=== PATIENT | female | born 1950 | race Caucasian/White ===

== ENCOUNTER → 2017-02-17 | Outpatient (CLI) | payer BC ==
--- NOTE | 2017-02-18 12:36 | ECHOCARDIOGRAPHY REPORT ---
PROCEDURE PHYSICIAN: GNEO HERNANDEZ DATE OF PROCEDURE: 02/17/2017 TWO DIMENSIONAL ECHOCARDIOGRAM REPORT PRIMARY PHYSICIAN: OTHER PHYSICIAN: REFERRING PHYSICIAN: Dr. Delatorre ORDERING PHYSICIAN: INDICATION FOR THE PROCEDURE: MEASUREMENTS DERIVED VALUES LV DIAMETER (LAX) NORMALS NORMALS Diastolic 4.1 (3.6-5.2) Eject. Fract. 55% (60%+/-6%) Systolic (2.3-3.9) Diastolic Vol. % Shortening (0.22-0.42) Systolic Vol. Aortic Root IVS THICKNESS Diastolic 0.8 (0.6-1.1) LVPW THICKNESS Diastolic 0.8 (0.6-1.1) LA DIAMETER Systolic 4. (2.1-3.7) FINDINGS: 1. Technical quality is good. 2. The left ventricle is normal in size with subtle hypokinesia at the septum. Systolic function is preserved. Estimated ejection fraction 55%. 3. The left atrium is normal in size. No clot or thrombus were seen within the left atrium. 4. The right atrium and right ventricle are normal in size. No clot or thrombus were seen within the right side. 5. Mitral valve is normal in morphology with mild mitral regurgitation noted by color Doppler flow. No mitral valve prolapse. No mitral valve stenosis. 6. Aortic valve is trileaflet with normal opening and closing pattern. No significant aortic stenosis or regurgitation was seen. 7. Tricuspid valve is normal in morphology with mild tricuspid regurgitation noted by color Doppler flow. Doppler across tricuspid valve estimated pulmonary artery pressure of 28+ right atrial pressure. 8. Pulmonic valve is functioning normally. 9. No pericardial effusion. CONCLUSION: 1. Normal left ventricular size. Subtle hypokinesia was noted at the septum. Systolic function is preserved. Estimated ejection fraction 55%. 2. Mild mitral and tricuspid regurgitation. 3. Estimated pulmonary artery pressure of 30 mmHg. 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
== END ==
LOC: CARD 13:58
PROVIDERS: ATTEND Physician Assistant
DX: R09.89 Other specified symptoms and signs involving the circulatory and respiratory systems (principal); R07.89 Other chest pain; E78.4 Other hyperlipidemia; I10 Essential (primary) hypertension
CPT/HCPCS: 93306

== ENCOUNTER → 2017-02-24 | Outpatient (CLI) | payer BC ==
[~2017-02-24] VITALS: Ht 160 cm; Wt 63.5 kg
[~2017-02-24] MED LIST: CATHETER FLUSH 10 ML SYR IV PRN
[2017-02-24 09:28] VITALS: BP 145/83
[2017-02-24 09:36] VITALS: BP 128/79
[2017-02-24 09:42] VITALS: BP 141/80
--- NOTE | 2017-02-24 16:07 | STRESS TEST ---
DATE OF SERVICE: DATE OF STUDY: 02/24/2017 REFERRING PHYSICIAN: Dr. Chaitanya Delatorre Baseline heart rate 100, baseline blood pressure 128/79, baseline EKG is sinus rhythm with no ischemic changes. In summary, the patient was injected with 10.33 millicuries of technetium 99 Myoview. The patient started with a baseline heart rate to be borderline tachycardic. She was able to exercise for a total of 9 minutes on standard Chintan protocol achieving maximum heart rate of 135 which is 87% of maximum expected heart rate. With peak exercise level, EKG was showing minimal undiagnostic changes. During recovery, heart rate and blood pressure returned to baseline. Peak blood pressure was 149/82. The resting and stress images were reviewed and compared and the short axis, horizontal long axis and vertical long axis views revealed that images showed mild decreased uptake at the basal to mid anterior septum and inferior septum with subtle reversibility. SSS is 8, SDS 6, TID value 0.94. On the gaited images, the left ventricle appeared to be normal size with normal contractility. Calculated ejection fraction 71%. CONCLUSION: 1. Excellent exercise tolerance, a total of 9 minutes on standard Chintan protocol, total of 10.1 mets achieving 87% of maximum expected heart rate. 2. Nondiagnostic EKG changes with exercise, returned to baseline during recovery. 3. Extracardiac attenuation affecting the quality of the images. There is mild decreased uptake at the base of the anterior septum and inferior septum with subtle reversibility. Does not correlate with significant ischemia. 4. Normal left ventricular size with normal contractility. Calculated ejection fraction is 71%. Job ID: [id number] DocumentID: [id number] Dictated Date: 02/24/2017 14:46:15 911 Emergency Dispatcher Date: 02/24/2017 15:45:08 Dictated By: GENO HERNANDEZ MD
== END ==
LOC: CARD 08:36
PROVIDERS: ATTEND Physician Assistant
DX: R09.89 Other specified symptoms and signs involving the circulatory and respiratory systems (principal); R07.89 Other chest pain; E78.4 Other hyperlipidemia; I10 Essential (primary) hypertension
CPT/HCPCS: 78452; 93017

== ENCOUNTER → 2018-03-09 | Outpatient (CLI) | payer BC ==
[2018-03-09 09:25] VITALS: BP 124/73
[2018-03-09 09:37] VITALS: BP 142/80
--- NOTE | 2018-03-09 22:23 | STRESS TEST ---
DATE OF SERVICE: 03/09/2018 EXERCISE MYOVIEW STRESS TEST REPORT REFERRING PHYSICIAN: Dr. Delatorre. Baseline heart rate is 63. Baseline blood pressure 124/73. Baseline EKG is sinus rhythm with no ischemic changes. In summary, the patient was injected with 10.67 mCi of technetium-99 Myoview and the resting images were obtained. Then, the patient started exercising with a baseline heart rate, blood pressure and EKG mentioned above. The patient was able to exercise for a total of 9 minutes and 45 seconds on standard Chintan protocol. With peak exercise level, EKG was showing nondiagnostic changes. During recovery, heart rate and blood pressure returned to baseline. EKG returned to baseline. The resting and stress images were reviewed and compared in the short axis, horizontal long axis, and vertical long axis views. Review of the images showed no significant ischemia or infarction on SPECT images. SSS is 0. TID value 1.02. On the gated images, the left ventricle appeared to be in normal size with normal contractility. Calculated ejection fraction 70%. CONCLUSION: 1. Good exercise tolerance, a total of 9 minutes 45 seconds on standard Chintan protocol, total of 11.3 METS achieving 92% of maximum expected heart rate. 2. Appropriate heart rate and blood pressure response to exercise returned to baseline during recovery. 3. Minimal nondiagnostic EKG changes with exercise returned to baseline during recovery. 4. No significant ischemia or infarction on SPECT images. 5. Normal left ventricular size with normal contractility. Calculated ejection fraction 70%. 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
== END ==
LOC: CARD 08:02
PROVIDERS: ATTEND Physician Assistant
DX: R09.89 Other specified symptoms and signs involving the circulatory and respiratory systems (principal); R07.89 Other chest pain; E78.5 Hyperlipidemia, unspecified; I10 Essential (primary) hypertension
CPT/HCPCS: 78452; 93017

== ENCOUNTER → 2021-09-24 | Outpatient (CLI) | payer MEDICARE, OTHER ==
[~2021-09-24] VITALS: Ht 160 cm; Wt 76.0 kg
[2021-09-24 13:54] VITALS: BP 136/88
--- NOTE | 2021-09-24 15:41 | Cardiology Stress Test Report ---
Stress Test Report Date of Procedure/Referring: Date of Procedure: Sep 24, 2021 PCP Geno White MD Admitting Physician Chaitanya Delatorre MD Indications: HTN Baseline Heart Rate: 71 Baseline Blood Pressure: Blood Pressure Systolic: 136 Blood Pressure Diastolic: 88 Vital Signs Date Time Temp Pulse Resp B/P (MAP) Pulse Ox O2 Delivery O2 Flow Rate FiO2 09/24/21 13:54 71 136/88 (104) Baseline Vital Signs Vital Signs Date Time Temp Pulse Resp B/P (MAP) Pulse Ox O2 Delivery O2 Flow Rate FiO2 09/24/21 13:54 71 136/88 (104) Baseline EKG: Baseline EKG: NSR Summary: After explaining the procedure and details to the patient, she signed the consent and was brought to the stress nuclear laboratory. Patient exercised on standard Chintan protocol, EKG, heart rate and blood pressure were monitored continuously, resting and stress doses of radio tracer were injected, imaging was acquired and reviewed in the short axis, horizontal long axis and vertical long axis views Patient was able to exercise for a total of 5 minutes on Chintan protocol, METs 7 Maximum heart rate 135 Maximum blood pressure 151/96 Stress EKG, Minimal nondiagnostic changes Recovery EKG, Return to baseline TID: 0.82 SSS: 3 SDS: 3 EF: 86 Conclusion: 1. Good exercise tolerance for a total of 5 minutes on standard Chintan protocol, 7 minutes achieving 89% of maximum expected heart rate 2. Appropriate heart rate and blood pressure response to exercise return to baseline during recovery 3. Minimal nondiagnostic EKG changes with exercise return to baseline during recovery 4. No significant ischemia or infarction on SPECT images 5. Normal left ventricular size, EF 86% GENO WHITE MD Sep 24, 2021 15:41
== END ==
LOC: CARD 12:00
PROVIDERS: ATTEND Internal Medicine Cardiovascular Disease
DX: I34.0 Nonrheumatic mitral (valve) insufficiency (principal); I25.10 Atherosclerotic heart disease of native coronary artery without angina pectoris; I11.9 Hypertensive heart disease without heart failure
CPT/HCPCS: 78452; 93017; 93306; A9502

== ENCOUNTER 2023-01-06 05:37 | Outpatient (CLI) | payer MEDICARE ==
[~2023-01-06] VITALS: Ht 162.6 cm; Wt 59.9 kg
[2023-01-06] MEDS ORDERED: ATOR10TA66 PO (13:26)
[2023-01-06] MEDS ORDERED: HYDR12.56 PO (13:26)
[2023-01-06] MEDS ORDERED: VALA10004 PO (13:26)
[2023-01-06] MEDS ORDERED: RALO60TA PO (13:26)
== END 2023-01-06 13:31 | disposition home or self-care (01) ==
LOC: PREOP 05:37
PROVIDERS: ATTEND Surgery
DX: Z01.818 Encounter for other preprocedural examination (principal)

== ENCOUNTER 2023-01-15 10:58 | Day surgery (SDC) | payer MEDICARE ==
[~2023-01-15] VITALS: Ht 160 cm; Wt 59.9 kg
[~2023-01-15 10:58] MED LIST changes: +ATOR10TA66 PO; -CATHETER FLUSH 10 ML SYR IV PRN; +HYDR12.56 PO; +RALO60TA PO; +VALA10004 PO
[2023-01-15] MEDS ORDERED: LACTATED RINGERS 1,000 ML IV STA (11:05)
[2023-01-15] MEDS ORDERED: LIDOCAINE JELLY 2% 6 ML SYRINGE MM PRN (11:15)
[2023-01-15] MEDS ORDERED: PROPOFOL INJECTION 50 ML IV ONE (11:16)
[2023-01-15 11:25] VITALS: BP 120/80
--- NOTE | 2023-01-15 11:28 | Progress Note-Pre Operative ---
Pre-Operative Progress Note Date of Available H&P: Jan 15, 2023 Date H&P Reviewed: Jan 15, 2023 Time H&P Reviewed: 11:15 History & Physical: No changes noted Pre-Operative Diagnosis: screening o ANA GARNETT MD Jan 15, 2023 11:28
--- NOTE | 2023-01-15 11:29 | Discharge Inst-Surgical ---
D/C Lap Instructions-MARIOLA Follow Up Activity as tolerated High Fiber Diet 25g or more per day Avoid Alcohol, Caffeine, Spicy [place] and Acid foods. Drink 64 fluid oz or more of fluids per day. Symptoms to Report: Fever over 101 degree F, Nausea/Vomiting If any problems/questions: Contact your physician or go to Emergency Room ANA GARNETT MD Jan 15, 2023 11:29
[2023-01-15] MEDS ORDERED: ONDANSETRON 4 MG/2 ML (SDV) Z0FRAN IVP PRN (11:30)
[2023-01-15] MEDS ORDERED: ONDANSETRON 4 MG (ZOFRAN) ORAL DISSOLVE TAB PO PRN (11:30)
[2023-01-15] MEDS ORDERED: LIDOCAINE JELLY 2% 6 ML SYRINGE ONE (11:46)
[2023-01-15 12:05] VITALS: BP 68/41
[2023-01-15 12:10] VITALS: BP 83/52
--- NOTE | 2023-01-15 12:14 | Progress Note-Post Operative ---
Post-Operative Progess Note Surgeon (s)/Maintenance Worker Municipal (s) Surgeon ANA GARNETT MD Maintenance Worker Municipal: none Pre-Operative Diagnosis screening colo Post-Operative Diagnosis mild chronic stage 2 ext and int hemorrhoids. Procedure & Operative Findings Date of Procedure 01/15/23 Procedure Performed/Findings colonoscopy Anesthesia Type mac Estimated Blood Loss Estimated blood loss (mL): minimal Specimens/Packing Specimens Removed none NAA GARNETT MD Jan 15, 2023 12:14
[2023-01-15 12:15] VITALS: BP 86/54
[2023-01-15 12:30] VITALS: BP 125/69
[2023-01-15 12:53] VITALS: BP 125/69
--- NOTE | 2023-01-15 20:00 | OPERATIVE REPORT ---
DATE OF SERVICE: 01/15/2023 ATTENDING PRIMARY CARE PHYSICIAN: Chaitanya Delatorre MD PREOPERATIVE DIAGNOSIS: Screening colonoscopy. POSTOPERATIVE DIAGNOSES: Mild chronic stage II, external and internal hemorrhoids. PROCEDURE: Colonoscopy. SURGEON: Ana Garnett MD ANESTHESIA: Monitored anesthesia care. ESTIMATED BLOOD LOSS: Minimal. FINDINGS: Mild chronic stage II, external and internal hemorrhoids. DISPOSITION: The patient tolerated the procedure well. INDICATIONS: The patient is a 72-year-old female in need of a screening colonoscopy. Her last colonoscopy she believes was greater than 10 years ago and thinks that this was around 2006, it is unsure. She reports that this was normal. She states that she is otherwise doing well, does not report any major issues with diarrhea, nor constipation as well as no red blood per rectum, nor any dark tarry stools. She also does not report any family history of colon cancer. DESCRIPTION OF PROCEDURE: The patient was brought to the endoscopy suite, laid in the left lateral decubitus position. After adequate IV pain and sedative medications and monitored anesthesia care, a digital rectal examination was performed. Mild chronic stage II, external and internal hemorrhoids were identified, which were not actively edematous nor inflamed and no bleeding. Normal sphincter tone was felt and there were no palpable masses. The endoscope was then intubated into the anus, rectum gently insufflated. The endoscope was then advanced through the valves of Artis of the rectum with no polyps or any neoplasms identified. We then proceeded through the sigmoid colon where no diverticulosis identified. The endoscope was then advanced to the remainder of the descending, transverse and ascending colon to the cecum, which were normal. There were no polyps or any neoplasms identified throughout the colon or rectum. The endoscope was then slowly withdrawn while taking a second look and suctioning of residual air with no additional findings. The patient tolerated the procedure well. We will recommend continued medical management with a high-fiber diet in addition of a fiber supplement, which are equal or exceed 25 grams daily as well as significant amounts of water to promote soft stools on a daily basis. If she is asymptomatic, she does not need another colonoscopy for another 10 years. Job ID: [id number] DocumentID: [id number] Dictated Date: 01/15/2023 12:09:36 Janitor Date: 01/15/2023 19:57:00 Dictated By: ANA GARNETT MD
== END 2023-01-15 12:53 | disposition home or self-care (01) ==
LOC: ENDO 10:58
PROVIDERS: ATTEND Surgery
DX: Z12.11 Encounter for screening for malignant neoplasm of colon (principal); K64.1 Second degree hemorrhoids; K64.4 Residual hemorrhoidal skin tags

== ENCOUNTER 2023-09-20 09:40 | Emergency (ER) | payer MEDICARE ==
[~2023-09-20] VITALS: Ht 162.6 cm; Wt 60.9 kg
[~2023-09-20 09:40] MED LIST changes: -RALO60TA PO; +RLX60T PO
[2023-09-20 09:55] VITALS: BP 136/86
--- NOTE | 2023-09-20 10:31 | ED Fall/Injury ---
General Chief Complaint: Upper Extremity Stated Complaint: FALL/LEFT HAND INJURY Nursing Triage Note: PATIENT C/O Lt. HAND PAIN WITH BRUISING AND SWELLING AFTER SHE TRIPPED AND FELL 3 DAYS AGO. PATIENT STATES SHE TRIPPED ON CONCRETE SIDE WALK. PATIENT C/O SWELLING AND BRUISING TO TOP LIP AFTER FALL. PATIENT STATES SHE HIT HER FACE, BUT IS UNABLE TO STATE IF SHE HIT HER HEAD. PATIENT DENIES LOC AFTER OR DURING INCIDENT. PATIENT DENIES HER TOP TEETH BEING LOOSE. PATIENT DENIES ANY PAIN TO WRIST AND STATES SHE CAN MOVE HAND UP AND DOWN AND TURN WITH NO PAIN. PATIENT STATES SHE REACHED OUT TO CATCH HERSELF WHEN SHE TRIPPED. Source: patient History of Present Illness Date Seen by Provider: Sep 20, 2023 Time Seen by Provider: 10:10 Initial Comments PT ARRIVES VIA POV FROM HOME PT STATES SHE WAS IN [place], [place] ON WEDNESDAY, AND SHE WAS WALKING ON UNEVEN SIDEWALK IN THE DARK, AND TRIPPED AND FELL FORWARD, ON OUTSTRETCHED HANDS SHE HIT HER MOUTH ON THE PAVEMENT, WELL HER RIGHT HIP SHE DID NOT HAVE LOSS OF CONSCIOUSNESS NO NECK OR BACK PAIN HER ONLY COMPLAINT IS PAIN, BRUISING AND SWELLING TO LEFT HAND NO PARESTHESIAS OR MOTOR DEFICITS SHE HAS A BRUISE ON THE INSIDE OF HER UPPER LIP, BUT NO DENTAL OR MOUTH OR OUTER LIP INJURY. NO INJURY TO NOSE OR CHIN NO FACIAL PAIN, NO NOSEBLEEDING, NO JAW PAIN. SHE STATES SHE HAS A BRUISE TO HER RIGHT HIP BUT IT DOES NOT HURT AND SHE IS NOT HAVING ANY DIFFICULTY WALKING SHE HAS A MINOR ABRASION TO HER RIGHT PALM, BUT DENIES ANY PAIN TO HER RIGHT HAND OR WRIST SHE IS ONLY CONCERNED ABOUT HER LEFT HAND AND WRIST SHE IS IN 81 MG ASPIRIN. NO OTHER BLOOD THINNERS. PT IS RIGHT HANDED NO PRIOR INJURIES OR PROBLEMS WITH LEFT HAND/WRIST. PCP: DR. ACEVEDO Allergies and Home Medications Allergies Coded Allergies: Penicillins (Unverified Allergy, Unknown, 02/24/17) amoxicillin (Unverified Allergy, Unknown, 01/06/23) Patient Home Medication List Atorvastatin Calcium (Atorvastatin Calcium) 10 Mg Tablet, 10 MG PO HS, (Reported) Entered as Reported by: GUS MIRANDA on 01/06/23 1326 Hydrochlorothiazide (Hydrochlorothiazide) 12.5 Mg Tablet, 12.5 MG PO, (Reported) Entered as Reported by: GUS MIRANDA on 01/06/23 1326 Raloxifene HCl (Evista) 60 Mg Tablet, 60 MG PO, (Reported) Entered as Reported by: GUS MIRANDA on 01/06/23 132 Valacyclovir HCl (Valtrex) 1,000 Mg Tablet, 1,000 MG PO, (Reported) Entered as Reported by: GUS MIRANDA on 01/06/23 1326 Review of Systems Review of Systems Constitutional: no symptoms reported Eyes: No Symptoms Reported Ears, Nose, Mouth, Throat: see HPI Respiratory: no symptoms reported Cardiovascular: no symptoms reported Gastrointestinal: no symptoms reported Genitourinary: no symptoms reported Musculoskeletal: see HPI Skin: see HPI Psychiatric/Neurological: No Symptoms Reported; Denies Headache, Denies Numbness, Denies Paresthesia Past Cjyidja-Surwsm-Lrpxxz Hx Patient Social History Tobacco Use?: No Use of E-Cig and/or Vaping dev: No Substance use?: No Alcohol Use?: Yes Alcohol Frequency: Rarely Immunizations Up To Date Influenza Vaccine Up-to-Date: No; Not Current First/Initial COVID19 Vaccinat: YES Second COVID19 Vaccination Sebastián: YES Third COVID19 Vaccination Date: N/A Seasonal Allergies Seasonal Allergies: Yes Past Medical History Surgery/Hospitalization HX: HTN, ELEVATED CHOLESTEROL Surgeries: Yes (BREAST BX) Breast Respiratory: No Cardiac: Yes High Cholesterol, Hypertension, Irregular Heartbeat Neurological: No 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 0.0oz. 63.018631sw; 23.00 BMI Method: General Appearance: WD/WN, no apparent distress HEENT: PERRL/EOMI, TMs normal, pharynx normal, other (BRUISING TO INSIDE OF UPPER LIP. NO LACERATION. NO GUM INJURY. NO DENTAL OR OTHER INTRA-ORAL INJURY. NO FACIAL PAIN OR TENDERNESS OR EXTERNAL EVIDENCE OF TRAUMA TO THE FACE. NOSE IS NON-TENDER. NO TRISMUS.) Neck: non-tender, full range of motion, supple, normal inspection Cardiovascular: normal peripheral pulses, regular rate, rhythm, no edema, no JVD, no murmur Respiratory: chest non-tender, normal breath sounds, no respiratory distress, no accessory muscle use Peripheral Pulses: 2+ Radial Pulses (R), 2+ Radial Pulses (L) Gastrointestinal: non tender, soft Back: normal inspection, no CVA tenderness, no vertebral tenderness Extremities: other (SIGNFICANT OLD BRUISING TO ENTIRE LEFT HAND AND WRIST, WITH DIFFUSE MODERATE SWELLING TO LEFT HAND AND WRIST. FULL ROM. SENSORY/VASCULAR INTACT. MINOR SCABBED ABRASION TO RIGHT PALM. LEGS ARE NO TENDER WITH FULL ROM AND SENSORY/VASCULAR INTACT. 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, no motor/sensory deficits, alert, normal mood/affect, oriented x 3 Skin: normal color, warm/dry, ecchymosis Progress/Results/Core Measures Results/Orders My Orders Orders - GIULIANOFRANCISCA K DO Forearm, Left, 2 Views (09/20/23 10:17) Wrist, Left, 3 Views Or More (09/20/23 10:17) Hand, Left, 3 Views (09/20/23 10:17) Ct Head/Face/Cervical Wo (09/20/23 10:41) Pelvis With Right Hip 2-3views (09/20/23 10:41) Ed Ortho/Other Supplies Order (09/20/23 11:40) George Bandage (09/20/23 11:40) Vital Signs/I&O 09/20/23 09:55 Temp 36.8 Pulse 73 Resp 16 B/P (MAP) 136/86 (103) O2 Delivery Room Air Blood Pressure Mean: 103 Departure Impression Primary Impression: Fall from standing Additional Impressions: Closed fracture of metacarpal of left hand Facial contusion Contusion of mouth Contusion of right hip Disposition: HOME, SELF-CARE Condition: Stable Departure-Patient Inst. Decision time for Depature: 11:40 Referrals: LEMUEL GIBBONS MD, JOHN D MD (PCP/Family) Primary Care Physician Patient Instructions: Caring for your splint, General Trauma, Adult ED, Hand Fracture ED, Head Injury in Adults (DC), Mouth and dental injuries in adults, Preventing Falls ED Add. Discharge Instructions: WEAR SPLINT AT ALL TIMES ICE TO AREA AT 20 MINUTE INTERVALS ELEVATE HAND MUCH POSSIBLE FOLLOW UP WITH DR. GIBBONS, ORTHOPEDIC SURGEON, FOR FURTHER CARE--CALL OFFICE TODAY TO SCHEDULE AN APPOINTMENT TYLENOL 1 GRAM 4 TIMES A DAY FOR PAIN All discharge instructions reviewed with patient and/or family. Voiced understanding. Scripts Tramadol HCl (Tramadol HCl) 50 Mg Tablet 50 MG PO Q4H for Pain, #20 TAB Prov: FRANCISCA NOBLES DO 09/20/23 FRANCISCA NOBLES DO Sep 20, 2023 10:31
--- NOTE | 2023-09-20 10:56 | Diagnostic Imaging Report ---
FOREARM, LEFT, 2 VIEWS INDICATION: Left forearm pain COMPARISON: None available. TECHNIQUE: 2 views of left forearm FINDINGS: Alignment is normal. There is no acute fracture appreciated. Mild soft tissue swelling at the ulnar and dorsal aspect of the distal forearm. IMPRESSION: No acute osseous abnormality the left forearm. Dictated by: Dictated on workstation # [id number]
--- NOTE | 2023-09-20 10:59 | Diagnostic Imaging Report ---
WRIST, LEFT, 3 VIEWS OR MORE INDICATION: Left wrist pain COMPARISON: None available. TECHNIQUE: 3 views of left wrist FINDINGS: Alignment is normal. No fracture. No features of avascular necrosis of lunate. Mild soft tissue swelling along the ulnar aspect of the wrist. IMPRESSION: No acute fracture. Dictated by: Dictated on workstation # [id number]
--- NOTE | 2023-09-20 11:04 | Diagnostic Imaging Report ---
HAND, LEFT, 3 VIEWS INDICATION: Left hand pain. COMPARISON: None available. TECHNIQUE: Three views of the left hand. FINDINGS: There is likely an acute fracture involving the base of the fifth metacarpal with intra-articular extension into the fifth CMC joint. Soft tissues swelling in the dorsal aspect the hand is present. No other acute fracture is seen. IMPRESSION: There is likely acute, minimally displaced fracture at the base of the fifth metacarpal with intra-articular extension into the fifth CMC. Dictated by: Dictated on workstation # [id number]
--- NOTE | 2023-09-20 11:19 | Diagnostic Imaging Report ---
PROCEDURE: CT head, face, and cervical spine without contrast. TECHNIQUE: Multiple contiguous axial images were obtained through the head, neck, and facial bones without the use of intravenous contrast. Sagittal and coronal reformations through the cervical spine and facial bones were also performed. Auto Exposure Controls were utilized during the CT exam to meet ALARA standards for radiation dose reduction. INDICATION: Trauma. Head and facial injury. Fall. COMPARISON: None. FINDINGS: CT HEAD: No intracranial hemorrhage, mass effect, hydrocephalus or extra-axial fluid collections. No CT evidence of territorial infarction. Osseous structures are intact. Visualized paranasal sinuses and mastoids are clear. CT MAXILLOFACIAL: No maxillofacial fractures. The mandible is intact. Normal alignment of the temporomandibular joints. Paranasal sinuses are clear. CT CERVICAL SPINE: Normal alignment. Vertebral body heights are preserved. No fractures. Abnzwkty-yo-sienax spondylotic changes are greatest at C3-C6. No CT evidence of high-grade spinal canal stenosis. Mild atherosclerotic calcifications in the carotid bifurcations. The lung apices are clear. IMPRESSION: No acute intracranial or cervical spine CT findings. No maxillofacial fractures. Dictated by: Dictated on workstation # [id number]
[2023-09-20] MEDS ORDERED: TRAM50TA3 PO (11:51)
--- NOTE | 2023-09-20 11:58 | Diagnostic Imaging Report ---
PELVIS WITH RIGHT HIP 2-3VIEWS INDICATION: Right hip pain COMPARISON: None available. TECHNIQUE: AP pelvis with AP and lateral views of the hip. FINDINGS: Alignment of the hip is normal. There are no features of avascular necrosis in the femoral head. No fracture or concerning focal osseous lesion. IMPRESSION: No acute osseous abnormality about the hip. Dictated by: Dictated on workstation # [id number]
== END 2023-09-20 12:09 | disposition home or self-care (01) ==
LOC: EDUNIT# 09:40 → ER 09:42
DX: S62.317A Displaced fracture of base of fifth metacarpal bone, left hand, initial encounter for closed fracture (principal); S00.531A Contusion of lip, initial encounter; S70.01XA Contusion of right hip, initial encounter; S60.511A Abrasion of right hand, initial encounter; W01.198A Fall on same level from slipping, tripping and stumbling with subsequent striking against other object, initial encounter; Y93.01 Activity, walking, marching and hiking; Y92.480 Sidewalk as the place of occurrence of the external cause
CPT/HCPCS: 70450; 70486; 72125; 73090; 73110; 73130